=== PATIENT | female | born 1985 | race Caucasian/White ===

== ENCOUNTER → 2016-05-20 | Outpatient (CLI) | payer OTHER ==
--- NOTE | 2016-05-20 09:54 | US ---
May 20, 2016 Dear Ms. Kristin Duvall, Thank you for requesting consultation and a follow up ultrasound for your patient, Mrs. Braeden jimenez. As you know, Lilly is a 31 year old G 1, P 0 . Her due date is 07/11/16 by LMP and 20 wee k ultrasound. Her current gestational age based on this dating is is 32 weeks 4 days. She is seen t isabel for follow up secondary to left sided pyelectasis noted on her prior ultrasound. She was offere d and declined aneuploidy screening. ULTRASOUND Number of fetuses: 1 Placental location: Posterior presentation: Cephalic Heart Rate: 153 bpm Cervix: Suboptimal secondary to shadowing Maximum Vertical Pocket: 7.4 cm Measurements: Biparietal diameter: 82 mm 33 weeks, 0 days Head circumference: 299 mm 33 weeks, 1 days Abdominal circumference: 284 mm 32 weeks, 4 days Femur length: 63 mm 32 weeks, 5 days Humerus length: 57 mm 33 weeks, 1 days Transcerebellar diameter: 40 mm 32 weeks, 0 days Average age by ultrasound: 32 weeks, 6 days Estimated weight: 2017 gm weight percentile: 42 % ANATOMY anatomy was previously assessed. Today the following structures were visualized and appeared n ormal: Lateral ventricle, cavum septum pellucidum, cerebellum, limited views of the heart, stomach, right kidney, and bladder. The left kidney remains dilated at the renal pelvis at 9.2 mm. IMPRESSION: 1. Intrauterine at 32 weeks, 4 days; MANDO of 07/11/16. 2. growth is appropriate size for dates. 3. Isolated left sided renal pelvis dilation at 9.2 mm; otherwise normal appearing review. 4. Normal amniotic fluid volume RECOMMENDATIONS: I was pleased to review today's ultrasound with your patient. I reassured her that growth is normal at the 42 %ile for this gestational age. The amniotic fluid volume is normal. We performed a review of the anatomy which was limited by gestational age and position, which continues to rev eal the left sided pyelectasis. Given the persistence, follow up is recommended. Future ultrasound and consultation is left to your clinical discretion. Thank you for allowing us the opportunity to evaluate your patient. Should you have any further ques tions or concerns please do not hesitate to contact me. Approximately 15 minutes were spent with the patient and 10 minutes were spent in face to face consu ltation. Soledad Shane MD [employer] Maternal Medicine Diagnosis Department of Obstetrics & Gynecology [facility]
--- NOTE | 2016-05-20 11:57 | US ---
Follow Up Obstetrical Sonography Clinical History: 31-year-old female for follow up of some left-sided pyelectasis. Technique: A curvilinear 5 MHz transducer was used to sonographically evaluate the fetus and placenta . A cine clip was acquired through the kidneys. Dr. Soledad Shane was present. M-mode Doppler was tyi francine. Comparison Study: Obstetrical sonography, dated March 04, 2016. LMP: October 05, 2015, indicating an age of 32 weeks 4 days, and an estimated date of delivery of July 11, 2016. Findings: Again, there is a single viable intrauterine gestation. The fetus is currently vertex in p resentation. The placenta is forming posteriorly. The maternal cervix is obscured by the head. The amniotic fluid is volume is appropriate, with a maximal vertical pocket of 7.4 cm. The hear t rate is 153 bpm. anatomy has been previously evaluated. On today's study, the supra- and infratentorial structur es appear normal. The lateral ventricular diameter is 5.4 mm. The cisterna magna is 5.8 mm. The 4 kalin mbered heart, interventricular septum, three-vessel tracheal view, and the outflow tracts are identif ied. The stomach, right kidney, and urinary bladder are normal. The left kidney has a dilated renal p wan measuring 9.2 mm. As a point of reference, on the previous study, pyelectasis ranged from 4.9 t o 6.4 mm. biometry is as follows: The biparietal diameter is 82 mm, corresponding to an age of 33 weeks 0 days +/- 3 weeks 1 day, which is at the 54th percentile. The head circumference is 299 mm, corresponding to an age of 33 weeks 1 day +/- 3 weeks 0 days, which is at the 27th percentile. The abdominal circumference is 284 mm, corresponding to an age of 32 weeks 4 days +/- 3 weeks 0 days, which is at the 47th percentile. The femur length is 63 mm, corresponding to an age of 32 weeks 5 days +/- 3 weeks 0 days, which is at the 40th percentile. The humeral length is 57 mm, corresponding to an age of 33 weeks 1 day, and the transverse cerebellar diameter is 40 mm, corresponding to an age of 32 weeks 0 days +/- 1 week 2 days. The composite gesta tional age is 32 weeks 6 days. The estimated weight is 2016 grams +/- 295 grams, which is 4 lbs. 7 oz. +/- 10 ounces, which is at the 42nd percentile. The head circumference to abdominal circumference ratio is normal, measuring 1.05. The femur length t o biparietal diameter ratio is 77%, and the femur length to abdominal circumference ratio is 22%. Impression: 1. There is a single viable intrauterine gestation with concordant biometry and appropriate interval growth since March 04, 2016. 2. There is persistent left-sided renal pyelectasis, and follow up is recommended. Please also refer to Dr. Shane's separate assessments and specific recommendations for follow up.
== END ==
LOC: FIMAGING 09:13
PROVIDERS: ATTEND Midwife
DX: Z36 Encounter for antenatal screening of mother (principal); O35.8XX0 Maternal care for other (suspected) fetal abnormality and damage, not applicable or unspecified; Z3A.32 32 weeks gestation of pregnancy

== ENCOUNTER 2016-07-15 12:43 | Inpatient (IN) | payer OTHER ==
[2016-07-15] MEDS ORDERED: OXYTOCIN/RINGERS LACTATE 1,000 ML IV PRN (16:32)
[2016-07-15] MEDS ORDERED: TERBUTALINE SULFATE 1 MG/ML VIAL IV PRN (16:32)
[2016-07-15] MEDS ORDERED: LIDOCAINE 1% 30 ML SDV SC PRN (16:32)
[2016-07-15] MEDS ORDERED: LR 1,000 ML IV PRN (16:32)
[2016-07-15] MEDS ORDERED: EPSOM SALT 454 GM TP PRN (16:32)
[2016-07-15] MEDS ORDERED: OLIVE OIL 118 ML BTL MISC PRN (16:32)
[2016-07-15] MEDS ORDERED: LR 500 ML IV PRN (16:35)
[2016-07-15] MEDS ORDERED: OXYTOCIN/RINGERS LACTATE 500 ML IV SCH (17:00)
[2016-07-15 17:15] LABS: % IMMATURE GRANULYOCYTES 0.8 % (0.0-1.1); ABSOLUTE IMMATURE GRANULOCYTES 0.07 10^3/uL (0.00-0.10); ADD DIFF? NO; ADD MORPH? NO; ADD SCAN? NO; ATYPICAL LYMPHOCYTE FLAG 0 (0-99); FRAGMENT RBC FLAG 0 (0-99); HEMATOCRIT 39.6 % (38.0-47.0); HEMOGLOBIN 13.8 g/dL (12.6-16.3); LEFT SHIFT FLG 0 (0-99); LIPEMIA HEMOLYSIS FLAG 90 (0-99); MEAN CELL HEMOGLOBIN 31.1 pg (27.9-34.1); MEAN CELL HEMOGLOBIN CONCENTR. 34.8 g/dL (32.4-36.7); MEAN CELL VOLUME 89.2 fL (81.5-99.8); MEAN PLATELET VOLUME 12.2 fL (8.7-11.7); PLATELET CLUMPS FLAG 0 (0-99); PLATELET COUNT 187 10^3/uL (150-400); RED BLOOD CELL COUNT 4.44 10^6/uL (4.18-5.33); RED CELL DISTRIBUTION WIDTH 12.8 % (11.5-15.2)
[2016-07-15] MEDS ORDERED: AMMONIA AROMATIC 1 EACH AMP IH ONE (17:41)
[2016-07-15] MEDS ORDERED: ZOLPIDEM TARTRATE 5 MG TAB PO ONE ×2 (18:06→23:00)
--- NOTE | 2016-07-15 18:14 | PDGENHP ---
History and Physical - Chief Complaint 31 y.o. female presents at 40 4/7 weeks for IOL - History of Present Illness 31 y.o. female presents at 40 4/7 weeks for IOL for post-dates and BPP of . Patient admitted to L&D with IV started Campos bulb placed. Pitocin started at low dose overnight with orders to begin regular dose at 0500. History Information - Allergies/Home Medication List Allergies/Adverse Reactions: Penicillins Allergy (Verified 07/15/16 16:32) I have personally reviewed and updated: family history, medical history, social history, surgical history - Past Medical History no pertinent PMH - Surgical History Reports: no pertinent surgical hx - Social History Smoking Status: Never smoked Alcohol Use: None Drug Use: None Review of Systems ROS: 10pt was reviewed & negative except for what was stated in HPI & below Constitutional: Reports: no symptoms EENMT: Reports: no symptoms Cardiac: Reports: no symptoms Respiratory: Reports: no symptoms Gastrointestinal: Reports: no symptoms Genitourinary: Reports: no symptoms Muscolosketal: Reports: no symptoms Skin: Reports: no symptoms Neurological: Reports: no symptoms Hematologic/Lymphatic: Reports: no symptoms Immunologic/Allergy: Reports: no symptoms Physical Exam Constitutional: no apparent distress Ears, Nose, Mouth, Throat: moist mucous membranes, hearing normal, ears appear normal Cardiovascular: regular rate and rhythym Respiratory: no respiratory distress, clear to auscultation Gastrointestinal: normoactive bowel sounds, soft, non-tender abdomen Genitourinary: no bladder fullness Skin: warm, normal color Musculoskeletal: full muscle strength Neurologic: AAOx3, sensation intact bilaterally Psychiatric: interacting appropriately, not anxious Lab Data & Imaging Review 07/15/16 16:00 WBC 9.07 10^3/uL (3.80-9.50) 07/15/16 16:00 RBC 4.44 10^6/uL (4.18-5.33) 07/15/16 16:00 Hgb 13.8 g/dL (12.6-16.3) 07/15/16 16:00 Hct 39.6 % (38.0-47.0) 07/15/16 16:00 MCV 89.2 fL (81.5-99.8) 07/15/16 16:00 MCH 31.1 pg (27.9-34.1) 07/15/16 16:00 MCHC 34.8 g/dL (32.4-36.7) 07/15/16 16:00 RDW 12.8 % (11.5-15.2) 07/15/16 16:00 Plt Count 187 10^3/uL (150-400) 07/15/16 16:00 MPV 12.2 fL (8.7-11.7) H 07/15/16 16:00 Neut % (Auto) 76.0 % (39.3-74.2) H 07/15/16 16:00 Lymph % (Auto) 16.1 % (15.0-45.0) 07/15/16 16:00 Wharton % (Auto) 6.6 % (4.5-13.0) 07/15/16 16:00 Eos % (Auto) 0.3 % (0.6-7.6) L 07/15/16 16:00 Baso % (Auto) 0.2 % (0.3-1.7) L 07/15/16 16:00 Nucleat RBC Rel Count 0.0 % (0.0-0.2) 07/15/16 16:00 Absolute Neuts (auto) 6.89 10^3/uL (1.70-6.50) H 07/15/16 16:00 Absolute Lymphs (auto) 1.46 10^3/uL (1.00-3.00) 07/15/16 16:00 Absolute Monos (auto) 0.60 10^3/uL (0.30-0.80) 07/15/16 16:00 Absolute Eos (auto) 0.03 10^3/uL (0.03-0.40) 07/15/16 16:00 Absolute Basos (auto) 0.02 10^3/uL (0.02-0.10) 07/15/16 16:00 Absolute Nucleated RBC 0.00 10^3/uL (0-0.01) 07/15/16 16:00 Immature Gran % 0.8 % (0.0-1.1) 07/15/16 16:00 Immature Gran # 0.07 10^3/uL (0.00-0.10) 03/27/17 16:00 Patient ABO/Rh A POSITIVE 07/15/16 16:00 Antibody Screen NEGATIVE 07/15/16 16:00 Assessment & Plan Assessment: 31 y.o. at 40 4/7 weeks for IOL at 40 4/7 weeks for post-dates and BPP -4/ 8. VSS- afebrile NST- reactive CAT I Pitocin for induction of labor. Plan: Admit to L&D VS and EFM per protocol Pitocin for induction of labor. Anticipate .
--- NOTE | 2016-07-15 18:21 | OBPROG ---
OBG Progress Note Assessment/Plan: Assessment: 31 y.o. female presents at 40 4/7 weeks for IOL for post-dates and BPP 4/8. VSS- afebrile. NST- reactive CAT I Plan: Admit to L&D for IOL. Begin pitocin for IOL. VS and EFM per protocol. Anticipate > 07/15/16 18:18 Subjective: Reports feeling well with good movement. Denies VB, LOF or UCs. present at bedside and supportive. Agreeable to plan for IOL. Objective: 07/15/16 16:00 Patient ABO/Rh A POSITIVE 07/15/16 16:00 - SVE Dilation (cm): 2 Effacement (%): 50 Station: -2 Current Contraction Pattern: Regular FHR (bpm): 140 FHR Pattern Variability: Moderate FHR Category: 1 Membranes: Intact - Physical Exam General Appearance: WD/WN, alert, no apparent distress Estimated Weight: 2501-3400g Neck: non-tender, full range of motion Respiratory: lungs clear, normal breath sounds Cardiac/Chest: regular rate, rhythm Abdomen: normal bowel sounds Membranes: Intact Extremities: normal range of motion, non-tender Back: Normal inspection Skin: normal color, warm/dry Neuro/Psych: alert, normal mood/affect, oriented x 3 ICD10 Worksheet Patient Problems: Problems Problem Status Onset 40 weeks gestation of Acute Post-term , 40-42 weeks of gestation Acute - ICD10 Problem Qualifiers (1) 40 weeks gestation of (2) Post-term , 40-42 weeks of gestation
[2016-07-16] MEDS ORDERED: ACETAMINOPHEN 325 MG TAB PO PRN (06:06)
[2016-07-16] MEDS ORDERED: HYDROCODONE/APAP 5/325 TAB PO PRN (06:06)
[2016-07-16] MEDS ORDERED: HYDROCORTISONE 0.5% CREAM TP PRN (06:06)
[2016-07-16] MEDS ORDERED: SIMETHICONE 80 MG TAB CHEW PO PRN (06:06)
[2016-07-16] MEDS ORDERED: OXYCODONE/APAP 5/325 TAB PO PRN (06:06)
--- NOTE | 2016-07-16 06:06 | OBPROC ---
- Labor and Delivery Onset of Contractions Date: 07/16/16 Onset of Contractions Time: 03:30 Onset of Contractions Type: Induced Rupture of Membranes Date: 07/16/16 Rupture of Membranes Time: 04:50 Rupture of Membranes Type: Artificial Amniotic Fluid Color: Clear Dilation Complete Time: 04:23 Delivery Type: Spontaneous Placenta Delivery Date: 07/16/16 Placenta Delivery Time: 05:35 Episiotomy/Laceration: 2nd Degree Repair: 3-0, Vicryl Complications: Nuchal Cord - Medications Labor Augmentation/Induction Meds Used: Pitocin Labor Augmentation/Induction Indication: Post Dates, Other (Specify) (BPP 07/27) - Info A Delivery Date: 07/16/16 Delivery Time: 05:23 Sex of : Female Score (1 Min): 8 Score (5 Min): 8
[2016-07-16] MEDS: IBUPROFEN 600 MG TAB PO PRN ×3 (08:37→22:34)
[2016-07-16 12:01] VITALS: RESP 16
[2016-07-16] MEDS: DOCUSATE SODIUM 100 MG CAP PO PRN (22:34)
[2016-07-17] MEDS: IBUPROFEN 600 MG TAB PO PRN ×3 (04:36→20:27)
--- NOTE | 2016-07-17 08:28 | SOAPPROG ---
SOAP Progress Note Assessment/Plan: Assessment: 31 y.o. female s/p PPD#1. Recovering well with good pain control. VSS- afebrile Anemic 07/15/16 18:18 PLAN- Routine orders. consult. Begin Iron for anemia. 07/17/16 08:25 Subjective: Reports feeling with good pain control and minimal vaginal bleeding. with assistance. Eating and drinking well without nausea or vomiting. Has been out of bed and ambulating without vertigo. Appropriate mood with good support system. Objective: Vital Signs Temp Pulse Resp BP Pulse Ox 36.2 C 71 16 120/79 96 07/16/16 19:15 07/16/16 19:15 07/16/16 19:15 07/16/16 19:15 07/16/16 19:15 Laboratory Results 07/17/16 06:20 07/16/16 07/17/16 07/18/16 05:59 05:59 05:59 Output Total 350 Balance -350 - Time Spent With Patient Time Spent With Patient: 20 minutes - Pending Discharge Pending Discharge Within 24 Hours: Yes Pending Discharge Date: 07/18/16 Pending Discharge Time: 11:00 Physical Exam - Physical Exam General Appearance: WD/WN, alert, no apparent distress EENT: normal ENT inspection Neck: non-tender, full range of motion, normal inspection Respiratory: lungs clear, normal breath sounds Cardiac/Chest: regular rate, rhythm Abdomen: non-tender, soft Pelvic Exam: normal external exam Rectal: deferred Back: Normal inspection Skin: normal color, warm/dry Lymphatic: no adenopathy Extremities: normal range of motion, non-tender Neuro/Psych: alert, normal mood/affect, oriented x 3 ICD10 Worksheet Patient Problems: Problems Problem Status Onset 40 weeks gestation of Acute Post-term , 40-42 weeks of gestation Acute - ICD10 Problem Qualifiers (1) 40 weeks gestation of (2) Post-term , 40-42 weeks of gestation
[2016-07-17] MEDS: IRON POLYSAC/IRON HEME 28 MG TAB PO SCH ×2 (14:38→20:27)
[2016-07-17] MEDS: DOCUSATE SODIUM 100 MG CAP PO PRN ×2 (14:39→20:27)
[2016-07-18] MEDS: IBUPROFEN 600 MG TAB PO PRN (05:03)
[2016-07-18] MEDS ORDERED: MEASLES,MUMPS&RUBELLA VACC/PF 0.5 ML VIAL SC ONE (09:09)
[2016-07-18] MEDS: IRON POLYSAC/IRON HEME 28 MG TAB PO SCH (09:47)
[2016-07-18] MEDS: DOCUSATE SODIUM 100 MG CAP PO PRN (09:47)
[2016-07-18 10:33] VITALS: BP 120/83; PULSE 100; TEMP 97.9; O2SAT 99
--- NOTE | 2016-07-18 11:52 | OBGCSDC ---
General Delivery Information - General Info : 2 Para: 1 Delivery Date: 07/16/16 Delivery Physician/CNM: Lula Tilley Labs: Patient ABO/Rh A POSITIVE 07/15/16 16:00 Hct 29.4 % (38.0-47.0) L D 07/17/16 06:20 - [place] Info Infant A Sex of Infant: Female Score (1 Min): 8 Score (5 Min): 8 Vaginal - Diagnosis Labor: Induced Rupture of Membranes Type: Artificial Repair: 3-0, Vicryl Complications: Nuchal Cord - Operations/Procedures Delivery Type: Spontaneous - Hospital Course Antepartum: IOL for postdates Intrapartum: Uncomplicated : Routine care. Meeting all milestones for discharge on PPD#2. Offered MMR vaccine Discharge Information - Discharge Information Discharge Medications: Ibuprofen, Vitamins Condition: Good Instruction/Follow Up: See Instruction Sheet, Six Weeks Discharge Physician/CNM: Shaila Fox Discharge Date: 07/18/16
== END 2016-07-18 11:30 | disposition home or self-care (01) | DRG 775 ==
LOC: FIMAGING 12:43 → FLD 15:05 → FOB 07-16 09:07
PROVIDERS: ADMIT Midwife; ATTEND Obstetrics & Gynecology
DX: O48.0 Post-term pregnancy (principal); O70.1 Second degree perineal laceration during delivery; O69.82X0 Labor and delivery complicated by other cord entanglement, without compression, not applicable or unspecified; Z3A.40 40 weeks gestation of pregnancy; Z37.0 Single live birth
CPT/HCPCS: J2590; J3105